=== PATIENT | female | born 1985 | race Caucasian/White ===

== ENCOUNTER 2020-04-14 05:57 | Inpatient (IN) ==
[2020-04-14] MEDS ORDERED: DEXTROSE 5%-LACTATED RINGERS 1,000 ML IV PRN (06:24)
[2020-04-14] MEDS ORDERED: ONDANSETRON 4 MG TAB.RAPDIS PO PRN (06:24)
[2020-04-14] MEDS ORDERED: RINGER'S SOLUTION,LACTATED 1,000 ML IV ONE (06:24)
[2020-04-14] MEDS ORDERED: OXYTOCIN/0.9 % SODIUM CHLORIDE 30 UNITS/500 ML BAG IV ONE ×2 (06:24→18:52)
[2020-04-14] MEDS ORDERED: CALCIUM CARBONATE 500 MG TAB.CHEW PO PRN (08:16)
--- NOTE | 2020-04-14 14:13 | HP ---
Chief Complaint - Chief Complaint Date of Service: 04/14/20 Time of Service: 13:58 Chief Complaint: elective induction History of Present Illness: 34 yo at 39w0d admitted for elective induction of labor. R/b/a to IOL discussed with patient in detail. All questions answered. This complicated by anemia, anxiety, and h/o PPH with transfusion. Rh positive Rubella immune GBS negative Medical History (Last Reviewed 04/14/20 @ 14:04 by Michael Farias DO) Anemia affecting Onset Date: ~01/30/20 Anxiety IBS (irritable bowel syndrome) Anemia w/ Hx of transfusion of packed red blood cells hemorrhage stated she was transferred to ICU after delivery- had episodes of passing out until she received 1 unit if PRBC Syncope after treated with 1u PRBC Surgical History: Surgical History (Last Reviewed 04/14/20 @ 14:04 by Michael Farias DO) No pertinent past surgical history Family History: Family History (Last Reviewed 04/14/20 @ 14:04 by Michael Farias DO) Father Alive and well Mother Anxiety Depression Social History: (Last Reviewed 04/14/20 @ 14:04 by Michael Farias DO) Social History: Marital status: household members: spouse current occupational status: employed current occupation: [employer] Highest education level completed: high school graduate Service: No Tobacco: Smoking Status: Never smoker Alcohol: alcohol intake: current alcohol intake frequency: a few times a week details: none with pregnacy Substance Use: substance use type: does not use Dietary Habits: caffeine: Yes caffeine comment: 1- Type: carbonated beverages Exercise: Physical activity type: none Review Of Systems (GEN) - Review of Systems Generalized/Overall Review: Present: No Symptoms Reported EENTM: Present: No Symptoms Reported Respiratory: Present: No Symptoms Reported Cardiac: Present: No Symptoms Reported Abdominal: Present: No Symptoms Reported Genitourinary: Present: No Symptoms Reported Musculoskeletal: Present: No Symptoms Reported Neurological: Present: No Symptoms Reported Skin: Present: No Symptoms Reported Endocrine: Present: No Symptoms Reported Allergies/Adverse Reactions: Allergies Allergy/AdvReac Type Severity Reaction Status Date / Time adhesive tape Allergy Anaphylaxis Verified 04/08/20 14:51 Home Medications: HOME MEDICATIONS fluoxetine 10 mg capsule 10 mg PO DAILY 10/14/19 [Last Taken 04/13/20 21:00] ferrous sulfate 325 mg (65 mg iron) tablet 325 mg PO BID tab 01/30/20 [Last Taken Unknown] Vits96/Iron Fum/Folic [ S] 1 tab PO DAILY 04/14/20 [Last Taken Unknown] Exam - Exam Vital Signs: Vital Signs - Last Taken Temp 36.5 C 04/14/20 06:15 Pulse 98 04/14/20 06:15 Resp 20 04/14/20 06:15 BP 118/80 04/14/20 06:15 Pulse Ox 97 04/14/20 06:15 Constitutional: Present: Alert, Oriented x3, Cooperative, Mild distress ENT Exam: Present: hearing grossly normal Neck: Present: non-tender, trachea midline. Absent: thyromegaly Breasts: Present: Exam deferred Respiratory: Present: lungs clear, no respiratory distress Cardiovascular/Chest: Present: regular rate, rhythm, no edema Abdomen: Present: soft, nontender, no rebound tenderness, other - Gravid /Rectal: Present: Other - Cervix - 3-4/75/-4 upon admission Extremity: Present: no pedal edema, no calf tenderness, lower extremity edema - 1+ Skin Exam: Present: normal color, warm/dry, no cyanosis Neurologic: Present: alert, normal mood/affect, oriented x 3 Appearance: Present: appropriate appearance, appropriate insight Eye contact: Present: cooperative Thoughts: Present: normal thought pattern, normal mood /affect Assessment/Plan - Assessment/Plan (1) Elective induction of labor planned Assessment: Admit for pitocin induction of labor. Epidural PRN. Problem: Acute (2) Anxiety Problem: Chronic (3) History of hemorrhage Problem: Chronic (4) Anemia Problem: Chronic Qualifiers: Anemia type: iron deficiency Iron deficiency anemia type: inadequate dietary iron intake Qualified Code(s): D50.8 - Other iron deficiency anemias
[2020-04-14] MEDS ORDERED: BUPIVACAINE HCL/0.9 % NACL/PF 250 ML EP PRN (14:16)
[2020-04-14] MEDS ORDERED: NALOXONE HCL 1 MG/1 ML SYRG IV PRN (14:16)
[2020-04-14] MEDS ORDERED: ONDANSETRON HCL/PF 2 MG/ML VIAL IV PRN (14:16)
--- NOTE | 2020-04-14 14:17 | PN ---
Progess Note - Interim Date: 04/14/20 Time: 14:14 Narrative: 04/14/20 14:14 Patient rating contractions as mild Vital signs stable. Pitocin at 14 mu/min. FHT: 130 baseline, reassuring contractions q 13 min Cervix: 4-5/70/-2, AROM-clear Impression: Intrauterine at 39 weeks inducing for labor Plan: We will prepare for epidural.
[2020-04-14] MEDS ORDERED: BUPIVACAINE HCL/PF 30 ML VIAL EP SCH (14:30)
--- NOTE | 2020-04-14 14:35 | ANES ---
Anesthesia Pre Procedure Eval Vitals/Labs: Last Vital Signs Temp 36.5 C 04/14/20 06:15 Pulse 98 04/14/20 06:15 Resp 20 04/14/20 06:15 BP 118/80 04/14/20 06:15 Pulse Ox 97 04/14/20 06:15 HOME MEDICATIONS fluoxetine 10 mg capsule 10 mg PO DAILY 10/14/19 [Last Taken 04/13/20 21:00] ferrous sulfate 325 mg (65 mg iron) tablet 325 mg PO BID tab 01/30/20 [Last Taken Unknown] Vits96/Iron Fum/Folic [ S] 1 tab PO DAILY 04/14/20 [Last Taken Unknown] Allergies/Adverse Reactions: Allergies Allergy/AdvReac Type Severity Reaction Status Date / Time adhesive tape Allergy Anaphylaxis Verified 04/08/20 14:51 - Planned Procedure Planned Procedure: ELECTIVE INDUCTION 39 WEEKS Medication List Reviewed:: Yes Allergies Verified: Yes Medical History (Last Reviewed 04/14/20 @ 14:04 by Michael Farias DO) Anemia affecting Onset Date: ~01/30/20 Anxiety IBS (irritable bowel syndrome) Anemia w/ Hx of transfusion of packed red blood cells hemorrhage stated she was transferred to ICU after delivery- had episodes of passing out until she received 1 unit if PRBC Syncope after treated with 1u PRBC Surgical History (Last Reviewed 04/14/20 @ 14:04 by Michael Farias DO) No pertinent past surgical history Family History (Last Reviewed 04/14/20 @ 14:04 by Michael Farias DO) Father Alive and well Mother Anxiety Depression - Anesthesia Assessment and Plan ASA Class: PS, II Anesthesia Type Plan: Epidural
--- NOTE | 2020-04-14 15:01 | ANES ---
Anesthesia Procedure Note Procedure Note: ANESTHESIA PROCEDURE NOTE Date of Procedure: 04/14/2020. Time of procedure: 1435. Performed by: Shivam Vences CRNA Messaging Architect: None. Preprocedure diagnosis: Active labor. Post procedure diagnosis: Same. Procedure: Insertion of labor epidural. Indications: The patient is a 34-year-old female in active labor requesting labor epidural for pain management. Findings: See below. Details of the procedure: The patient was placed in a sitting position. DuraPrep as well as Betadine swabs X3 was applied to the patient's back. Patient was then draped in a sterile fashion. Lidocaine 1% was infiltrated to the skin and subcutaneous tissues at the level of the L3-4 interspace. The epidural space was identified using a 18-gauge Tuohy needle with [id number] technique. Epidural catheter was inserted to a depth of 11 centimeters at skin. Negative test dose was elicited using 3 mL of 1.5% preservative-free lidocaine plus epinephrine 1 200,000. The epidural catheter was then taped and secured in place. A loading dose of 8 mL of 0.25% preservative-free bupivacaine was administered to the epidural catheter after negative aspiration for blood and CSF. EBL: Minimal. Fluids: N/A. Specimen: N/A. Post procedure condition: The patient tolerated the procedure well. No complications were noted. Thank you for this consultation. Shivam Vences CRNA
--- NOTE | 2020-04-14 15:01 | ANES ---
Post Anesthesia Assessment - Vital Signs Vitals: Last Vital Signs Temp 37 C 04/14/20 14:56 Pulse 90 04/14/20 14:56 Resp 18 04/14/20 14:56 BP 125/78 04/14/20 14:56 Pulse Ox 99 04/14/20 14:56 Airway Patency: Normal - Mental Status Level Of Consciousness: Awake - N/V Assessment Nausea/Vomiting Presence: None Dehydration:: No
--- NOTE | 2020-04-14 18:47 | OR ---
Operative Report - Dictated Report Narrative: Spontaneous vaginal delivery of viable male at 1809 with Apgars 9 and 9, weighing 5158 g and BABAR position with the right hand at face. Cord clamping delayed approximately 1 minute Placenta delivered complete, intact, with three vessel cord Estimated blood loss: 100 mL Anesthesia: Epidural Lacerations: Second-degree vaginal laceration repaired with 3-0 Vicryl Rapide (3 cm). History for History for Definition: * The number of deliveries resulting in a live the patient experienced prior to current hospitalization * The previous delivery of live twins or any live multiple gestation is considered one live event. *If primagravida or nulliparous is documented select zero for the number of previous live births. Live Events: Live Events: 1
[2020-04-14] MEDS ORDERED: BENZOCAINE/MENTHOL 81 SPRAY CAN TP PRN (18:52)
[2020-04-14] MEDS ORDERED: HYDROCORTISONE 30 APPL TUBE TP PRN (18:52)
[2020-04-14] MEDS ORDERED: hydrOXYzine PAMOATE 50 MG CAPSULE PO PRN (18:52)
[2020-04-14] MEDS ORDERED: SENNOSIDES 8.6 MG TABLET PO PRN (18:52)
[2020-04-14] MEDS ORDERED: GLYCERIN/WITCH HAZEL LEAF 40 APPL BOX TP PRN (18:52)
[2020-04-14] MEDS ORDERED: IBUPROFEN 800 MG TABLET PO PRN (18:52)
[2020-04-14] MEDS ORDERED: BISACODYL 10 MG SUPP.RECT RC PRN (18:52)
[2020-04-14] MEDS: IBUPROFEN 800 MG TABLET PO PRN (19:06)
[2020-04-14] MEDS: oxyCODONE HCL/ACETAMINOPHEN 1 TAB TABLET PO PRN ×2 (19:45→22:44)
[2020-04-15] MEDS: DOCUSATE SODIUM 100 MG CAPSULE PO SCH ×3 (00:56→20:27)
[2020-04-15] MEDS: IBUPROFEN 800 MG TABLET PO PRN ×3 (07:28→23:59)
[2020-04-15] MEDS: oxyCODONE HCL/ACETAMINOPHEN 1 TAB TABLET PO PRN ×3 (07:29→20:27)
--- NOTE | 2020-04-15 09:07 | PN ---
Subjective - Date and Time Seen Date: 04/15/20 Time: 09:06 Objective - Vitals Vitals: Last Vital Signs Temp 36.4 C 04/15/20 07:30 Pulse 66 04/15/20 07:30 Resp 18 04/15/20 07:30 BP 128/75 04/15/20 07:30 Pulse Ox 99 04/15/20 07:30 Patient denies complaints. Considering breast-feeding. Lochia wnl abdomen - soft, nontender Uterus -firm, at umbilicus - 1 No calf tenderness Impression: day #1 - s/p spontaneous vaginal delivery. Vulvar hematoma stable and not expanding. Plan: Continue routine care. consult Cauti Physician Documentation - Urinary Catheter Management Urethral (Monsalve) Date of Insertion: 04/14/20 Time of Insertion: 15:28 Date of Removal: 04/14/20 Time of Removal: 18:02 Assessment/Plan - Problems/Diagnosis (1) Elective induction of labor planned Problem: Acute (2) Anxiety Problem: Chronic (3) History of hemorrhage Problem: Chronic (4) Anemia Problem: Chronic Qualifiers: Anemia type: iron deficiency Iron deficiency anemia type: inadequate dietary iron intake Qualified Code(s): D50.8 - Other iron deficiency anemias
[2020-04-15] MEDS: FLUoxetine HCL 10 MG CAPSULE PO SCH (10:54)
[2020-04-15] MEDS: FERROUS SULFATE 325 MG TABLET PO SCH (20:27)
[2020-04-16] MEDS: oxyCODONE HCL/ACETAMINOPHEN 1 TAB TABLET PO PRN (05:57)
[2020-04-16 07:16] VITALS: BP 131/72
[2020-04-16] MEDS: FLUoxetine HCL 10 MG CAPSULE PO SCH (08:08)
[2020-04-16] MEDS: FERROUS SULFATE 325 MG TABLET PO SCH (08:08)
[2020-04-16] MEDS: DOCUSATE SODIUM 100 MG CAPSULE PO SCH (08:08)
[2020-04-16] MEDS ORDERED: PRENATAL VITS96/IRON FUM/FOLIC 1 TAB TABLET PO SCH (09:00)
--- NOTE | 2020-04-16 09:31 | DS ---
[facility] Discharge Exam - Date and Time Seen: Date: 04/16/20 Time: 07:50 NB Discharge Summary - Information Weight: 81.647 kg - Vital Signs Discharge Vital Signs: Last Vital Signs Temp 97.3 F 04/16/20 06:45 Pulse 71 04/16/20 06:45 Resp 16 04/16/20 06:45 BP 131/72 04/16/20 06:45 Pulse Ox 99 04/16/20 06:45 - Discharge Disposition Disposition: Home self-care Problem Oriented Discharge Instructions to Patient/Family: Care After Vaginal Delivery Additional Instructions: Renée your follow up appointment is scheduled for SundayMay 10 @ 2:[address] Farias. Ofelia's follow up appointment is scheduled for His blood type is O- Discharge weight 10 lbs 15.4 oz Discharge bilirubin 6.6 Continue to feed him Similac Sensitive at least every 3-[address] him on his back to sleep in his own bassinet or crib. No loose blankets, bumper pads, stuffed animals or pillows. Thank you for choosing [facility]. If you have any questions or concerns please don't hesitate to call us at [phone]. Prescriptions (Any new or edited meds): Ibuprofen [Motrin] 200 - 800 mg PO Q6H PRN #100 tab PRN Reason: Pain Complete Home Medications List: Complete Home Medication List: fluoxetine 10 mg capsule 10 mg PO DAILY 10/14/19 ferrous sulfate 325 mg (65 mg iron) tablet 325 mg PO BID tab 01/30/20 Vits96/Iron Fum/Folic [ S] 1 tab PO DAILY 04/14/20 Ibuprofen [Motrin] 200 - 800 mg PO Q6H PRN #100 tab 04/15/20
--- NOTE | 2020-04-16 13:27 | PN ---
Subjective - Date and Time Seen Date: 04/16/20 Time: 12:00 Objective - Vitals Vitals: Last Vital Signs Temp 36.3 C 04/16/20 06:45 Pulse 71 04/16/20 06:45 Resp 16 04/16/20 06:45 BP 131/72 04/16/20 06:45 Pulse Ox 99 04/16/20 06:45 Patient denies complaints. Bottlefeeding Lochia wnl abdomen - soft, nontender Uterus -firm, at umbilicus - 2 No calf tenderness Impression: day #2 - s/p spontaneous vaginal delivery. Plan: Routine discharge instructions Cauti Physician Documentation - Urinary Catheter Management Urethral (Monsalve) Date of Insertion: 04/14/20 Time of Insertion: 15:28 Date of Removal: 04/14/20 Time of Removal: 18:02 Assessment/Plan - Problems/Diagnosis (1) Elective induction of labor planned Problem: Acute (2) Anxiety Problem: Chronic (3) History of hemorrhage Problem: Chronic (4) Anemia Problem: Chronic Qualifiers: Anemia type: iron deficiency Iron deficiency anemia type: inadequate dietary iron intake Qualified Code(s): D50.8 - Other iron deficiency anemias
--- NOTE | 2020-04-16 13:32 | DS ---
OB Discharge Summary (1) Elective induction of labor planned Status: Resolved (2) Anxiety Status: Chronic (3) History of hemorrhage Status: Chronic (4) Anemia Status: Chronic Qualifiers: Anemia type: iron deficiency Iron deficiency anemia type: inadequate dietary iron intake Qualified Code(s): D50.8 - Other iron deficiency anemias Delivery Date: 04/14/20 Delivery Time: 18:09 :: 2 Para:: 2 Gestational weeks:: 39 Gestational days:: 0 Intrapartum Procedures: Spontaneous Vaginal Delivery, Delivered, Anesthesia - Epidural, Other - repair 2nd degree vaginal laceration Procedures: None /OP Complications: No Complications Discharge Diagnosis: Term -Delivered - Discharge Information Date of Discharge: 04/16/20 Hospital Course: 34-year-old 2 para 1 admitted at 39 1/7 weeks for elective induction of labor. Patient had a small second-degree vaginal laceration with delivery. Her course was uncomplicated. Routine discharge instructions given. Discharge Location: Home Disposition: Home self-care Condition: Good Activity on Discharge:: Activity as tolerated, Pelvic Rest Discharge Diet: General/regular food Additional Patient Instructions (free text): Renée your follow up appointment is scheduled for SundayMay 10 @ 2:[address] Farias. Ofelia's follow up appointment is scheduled for SundayApril 19 at 8:[address] [facility]. His blood type is O- Discharge weight 10 lbs 15.4 oz Discharge bilirubin 6.6 Continue to feed him Similac Sensitive at least every 3-[address] him on his back to sleep in his own bassinet or crib. No loose blankets, bumper pads, stuffed animals or pillows. Thank you for choosing [facility]. If you have any questions or concerns please don't hesitate to call us at [phone]. Prescriptions (Any new or edited meds): Ibuprofen [Motrin] 200 - 800 mg PO Q6H PRN #100 tab PRN Reason: Pain Complete Home Medications List: Complete Home Medication List: fluoxetine 10 mg capsule 10 mg PO DAILY 10/14/19 ferrous sulfate 325 mg (65 mg iron) tablet 325 mg PO BID tab 01/30/20 Vits96/Iron Fum/Folic [ S] 1 tab PO DAILY 04/14/20 Ibuprofen [Motrin] 200 - 800 mg PO Q6H PRN #100 tab 04/15/20 - Plan Discharge to:: Home Follow up in office in:: 3-4 weeks - Information Weight (Grams): 5,158 Sex: Male Score 1 min: 9 Score 5 min: 9 Circumcision: Yes Infant Complications: None
== END 2020-04-16 13:45 | disposition home or self-care (01) | DRG 806 ==
LOC: OB 05:57
PROVIDERS: ADMIT Obstetrics & Gynecology; ATTEND Obstetrics & Gynecology